=== PATIENT | male | born 1960 | race Caucasian/White ===

== ENCOUNTER 2023-12-25 07:29 | Outpatient (OUT) | payer OTHER, SELFPAY ==
--- NOTE | 2023-12-25 07:48 | CA_ITS ---
Patient Name: PASTOR CHIANG MR#: [id number] : 1960 Exam Date: 12/25/2023 Ordering Doctor: DR ELIZABETH FERGUSON M.D. ECHOCARDIOGRAM REPORT PROCEDURE: CA ECHO DOPPLER COMPLETE INDICATIONS: New onset of Afib, Essential HTN COMPARISON: None. DESCRIPTION: COMPLETE ECHOCARDIOGRAM Real-time transthoracic echocardiography with 2D, M-mode, spectral and color flow Doppler performed. QUALITY: Technical quality was good. LEFT VENTRICLE: Normal chamber size. Normal left ventricular wall thickness. Systolic function is difficult to assess due to rhythm but appears moderately reduced. LV EF: Moderately reduced left ventricular ejection fraction, (35-40%). DIASTOLIC: Not adequately assessed due to heart rhythm. ATRIAL SEPTUM: LEFT ATRIUM: Moderate dilatation. RIGHT ATRIUM: Moderate dilatation. RIGHT VENTRICLE: Mild dilatation. Mildly reduced right ventricular systolic function. TRICUSPID VALVE: Normal mobility and thickness. No stenosis with mild regurgitation. No evidence of pulmonary hypertension. RVSP 27 mmHg MITRAL VALVE: Normal mobility and thickness. No evidence of mitral valve stenosis. There is no mitral annular calcification. Mild mitral regurgitation. AORTIC VALVE: Normal trileaflet appearance. No visible sclerosis. Normal leaflet mobility. No evidence of aortic valve stenosis. Mild aortic regurgitation. AORTIC ROOT: Normal diameter and appearance. PULMONIC VALVE: Normal thickness and mobility. No stenosis. Trivial regurgitation. PERICARDIUM: No evidence of pericardial effusion. IVC: Collapses with inspirations. Normal size. PLEURA: CONCLUSION: 1. Normal left ventricular size with moderately reduced systolic function. There is diffuse global hypokinesis. Left ventricular ejection fraction is estimated at 35 to 40%. 2. Mildly dilated right ventricle with mildly reduced systolic function. 3. Moderate biatrial dilatation. 4. Mild mitral, aortic, tricuspid regurgitation. 5. Normal right-sided pressures. 6. The patient appears to be in atrial fibrillation during the exam. Adult Echocardiography Procedure Report Left Ventricle LVEDD (3.7 - 5.6 cm): 5.74 cm LVESD (2.2 - 4.0 cm): 5.06 cm LVIVS thickness (0.6 - 1.2 cm): 1.05 cm LVPW thickness (0.5 - 1.0 cm): 1.02 cm e': 0.12 m/s E - e': 7.93 LVOT Max Gradient: 3.20 mm[Hg], 2.87 mm[Hg] LVOT Area (cm2): 0.87 m/s Peak Velocity (LVOT): 0.89 m/s, 0.85 m/s Mean Velocity (LVOT): 0.63 m/s LVOT Diameter 2.49 cm Left Ventricular Ejection Fraction: 35-40 % Left Atrium LA Volume Index (2D A2C): 43.25 ml/m2 Left Atrium Systolic Dimension: 4.07 cm Mitral Valve MV E to A Ratio: 59.79 Mitral Valve A-Wave Peak Velocity: 0.02 m/s Mitral Valve E-Wave Peak Velocity: 0.92 m/s Right Ventricle RV Internal Diastolic Dimension: 4.46 cm Aorta AO Root Diam: 3.19 cm Ascending Ao Diam: 3.74 cm Aortic Valve AoV Area (Peak Humberto): 3.64 cm2, 3.74 cm2 AoV Area (VTI): 3.28 cm2, 3.41 cm2 Deceleration [place]: 0.97 m/s2 Pressure Half-Time: 750.19 ms Peak Velocity(Antegrade Flow): 1.17 m/s Peak Gradient(Antegrade Flow): 5.44 mm[Hg] Mean Velocity(Antegrade Flow): 0.80 m/s Mean Gradient(Antegrade Flow): 2.98 mm[Hg] Velocity Time Integral: 22.83 cm Tricuspid Valve Peak Velocity (Regurgitant Flow): 2.09 m/s, 2.40 m/s, 2.44 m/s Pulmonic Valve Mean Gradient: 1.35 mm[Hg], 1.59 mm[Hg] Mean Velocity: 0.54 m/s, 0.58 m/s Peak Velocity: 0.80 m/s Peak Gradient: 2.28 mm[Hg], 2.83 mm[Hg] Right Atrium Right Atrium Systolic Pressure: 127.62 ml, 127.62 ml Dictated by: Wai Banuelos M.D. on 12/25/2023 at 19:53 Approved by: Wai Banuelos M.D. on 12/25/2023 at 19:57
== END 2023-12-25 07:30 | disposition home or self-care (01) ==
LOC: CARD 07:32
PROVIDERS: PCP Family Medicine; Visit Provider Family Medicine
DX: I49.9 Cardiac arrhythmia, unspecified (principal); I10 Essential (primary) hypertension; I48.91 Unspecified atrial fibrillation; Z12.5 Encounter for screening for malignant neoplasm of prostate
CPT/HCPCS: 93306; 93356